=== PATIENT | female | born 1960 | race Caucasian/White ===

== ENCOUNTER 2020-12-12 08:37 | Day surgery (SDC) | payer BC ==
[2020-12-12] MEDS ORDERED: Ringers Lactate 1,000 ML IV ONE (09:24)
[2020-12-12] MEDS: CEFAZOLIN/SWI 1gm 1 GM/10 ML SYR ONE ×2 (11:19→12:15)
[2020-12-12] MEDS: BUPIVACAINE 0.25% PF 30 ML VIAL ONE ×2 (11:19→12:31)
[2020-12-12] MEDS ORDERED: dexAMETHasone 10 MG/ML VIAL ONE (11:42)
[2020-12-12] MEDS ORDERED: ROCURONIUM 50 MG/5 ML VIAL IV ONE (11:42)
[2020-12-12] MEDS ORDERED: MIDAZOLAM HCL 2 MG/2 ML INJ ONE (11:42)
[2020-12-12] MEDS ORDERED: FENTANYL CITR 100 MCG/2 ML ONE (11:42)
[2020-12-12] MEDS ORDERED: LIDOCAINE 2% MPF 5 ML VIAL ONE (11:42)
[2020-12-12] MEDS ORDERED: KETOROLAC 30 MG/ML INJ ONE (11:42)
[2020-12-12] MEDS ORDERED: ONDANSETRON 4 MG/2 ML VIAL ONE ×2 (11:42→14:08)
[2020-12-12] MEDS ORDERED: propofoL 200 MG/20 ML VIAL IV ONE (11:42)
--- NOTE | 2020-12-12 13:20 | P.OP ---
Light Equipment Operator: SAJAN GE Preoperative diagnosis: Left Lower Quadrant Ventral Abdominal Wall Hernia Postoperative diagnosis: Left Lower Quadrant Ventral Abdominal Wall Hernia Primary procedure: Laparoscopic Ventral Hernia Repair with Mesh Anesthesia: GETA + Local Estimated blood loss: <5cc Specimen: none Findings: ~2 cm round Left Lower Quadrant Ventral Abdominal Wall Hernia Complications: None Implants: 4.5 cm round Bard ventralite mesh with echo position Transferred to: Recovery Room Condition: Good
[2020-12-12] MEDS: MEPERIDINE HCL 25 MG/ML SYR ONE ×2 (13:51→14:01)
[2020-12-12] MEDS: MORPHINE 4 MG/ML SYR ONE ×2 (13:56→14:10)
[2020-12-12 14:30] VITALS: TEMP 97; O2SAT 99
[2020-12-12] MEDS ORDERED: HYDROCODONE/APAP 7.5/325 MG TAB ONE ×2 (14:45→15:33)
[2020-12-12 16:28] VITALS: BP 131/78
--- NOTE | 2020-12-12 17:22 | OP ---
Date of Procedure: 12/12/2020 Surgeon: Emily Garza MD, Licensed Master Social Worker: Meghna Vargas. Preoperative Diagnosis: Left lower quadrant ventral abdominal wall hernia. Postoperative Diagnosis: Left lower quadrant ventral abdominal wall hernia. Procedure Performed: A laparoscopic ventral hernia repair with mesh. Anesthesia: General endotracheal plus local with 0.25% Marcaine without epinephrine. Estimated Blood Loss: Less than 5 mL Specimen: None. Findings: A 2 cm round left lower quadrant ventral abdominal wall hernia. Complications: None. Implants: 4.5 cm round Bard [address]ight ST mesh with Echo Positioning System. Disposition: The patient was transferred to recovery room in good condition. Procedure In Detail: After informed consent was obtained, the patient was brought to the operating r oom, prepped and draped in the usual sterile fashion. After adequate anesthesia, the left upper quad rant area was anesthetized with 0.25% Marcaine, sharply incised. A 5 mm 0-degree optical trocar was introduced into the abdomen without evidence of complication. Insufflation was obtained to 15 mmHg a t this time. No injury to vital structures upon entry to the abdomen. I inspected the abdomen at th is point and found that there was a large left lower quadrant ventral abdominal hernia with omentum c ontained within an intraabdominal adipose tissue and mesentery. I placed an additional trocar in the right upper quadrant. This was a 5 mm trocar placed under direct visualization without evidence of complication. Additional left lower quadrant trocar was placed under direct visualization without ev idence of complications. This was a 5 mm trocar. The left upper quadrant trocar was then up-sized t o a 12 mm under direct visualization without evidence of complication. The patient was positioned he ad down position. Ratcheted grasper was used to grasp the patient's adipose tissue and gently dissec emily out of the hernia sac, which was found to be in the left lower quadrant anterior abdominal wall. The camera was passed through this area and found that there was a fascial defect in this plane. As such, I brought an Endo stitch with V-Loc barbed suture and I closed the defect from fascia to fasci a in a running fashion with the V-Loc suture. At this point, good apposition of the tissue was appre ciated and at this point, I positioned the 4.5 cm round Bard Vent[address]ight ST mesh and sized it appropr iately. At this point, the Bard Ventralight mesh was brought into the abdomen and deployed off cente r superomedial to the central portion of this defect as it was in the lower abdomen to avoid any blad meghann or vascular injury. After this was positioned appropriately, the balloon system was deployed and the mesh was tacked to the anterior abdominal wall using absorbable fixation tacks. At this point, the balloon deployment system was removed and found to be intact. I then placed an additional crown of absorbable fixation tacks to the anterior abdominal wall with good apposition of the mesh to the t issue. I then used approximately 60 tacks to secure the mesh to the anterior abdominal wall and good hemostasis was achieved throughout the procedure and good apposition of the mesh to the anterior abd ominal wall was appreciated at this point. I then placed the patient back in neutral position, remov ed the left upper quadrant trocar, and closed this trocar site with an interrupted 0 Vicryl suture wi th good apposition of tissues. The abdomen was completely desufflated under direct vision without ev idence of complication. All remaining trocars were removed. All skin incisions were copiously irrig ated and closed with 4-0 Monocryl in a running fashion. Dermabond placed over top. The patient jay rated the procedure well without evidence of complication and transferred to PACU in good condition. All counts were correct at the end of the case. KERMIT/MATILDA Voice ID: [id number] Report ID: [id number]
== END 2020-12-12 16:15 | disposition home or self-care (01) ==
LOC: OR 08:37
PROVIDERS: ATTEND Surgery
PROC: 0WUF4JZ Supplement Abdominal Wall with Synthetic Substitute, Percutaneous Endoscopic Approach (ICD-10-PCS; principal; 2020-12-12 10:45)
DX: K43.9 Ventral hernia without obstruction or gangrene (principal); Z20.822 Contact with and (suspected) exposure to COVID-19
CPT/HCPCS: 49652; U0002; J2704; J2250; J3010; J1100; J2175; J0690; J7120; J2405 ×2; C1781